=== PATIENT | male | born 1960 | race Caucasian/White ===

== ENCOUNTER 2022-12-04 11:02 | Outpatient (CLI) | payer OTHER, SELFPAY ==
[2022-12-04 15:47] LABS: Strep A DNA Probe* NOT DETECTED (Not Detectd)
== END 2022-12-04 11:03 | disposition home or self-care (01) ==
PROVIDERS: PCP Nurse Practitioner Family; Visit Provider Nurse Practitioner Family
DX: J02.9 Acute pharyngitis, unspecified (principal)
CPT/HCPCS: 87651

== ENCOUNTER 2023-03-01 13:40 | Outpatient (CLI) | payer OTHER, SELFPAY ==
--- NOTE | 2023-03-01 14:00 | CRLHL7_ITS ---
For Patients: As a result of the Century Cures Act, medical imaging exams and procedure reports are released immediately into your electronic medical record. You may view this report before your referring provider. If you have questions, please contact your health care provider. INDICATION: Lower abdominal pain and pressure TECHNIQUE: Axial images were obtained from the diaphragm to the pubic symphysis. Reformats were obtained in the coronal and sagittal plane. IV Contrast: 100 cc Isovue 370 Oral Contrast: None COMPARISON: None. FINDINGS: Lower chest: Basilar discoid atelectasis. Liver: Normal in contour with a subcentimeter hypodense lesion within the left lobe of the liver. In the absence of a known primary malignancy this would likely represent an incidental finding. Gallbladder and bile ducts: Unremarkable. No stones or inflammation. No biliary dilatation. Spleen: Enhancing splenic lesion measuring up to 11 millimeters. Pancreas: Unremarkable. No mass or inflammation. Adrenal glands: Unremarkable. No nodules. Kidneys: Symmetric renal enhancement without hydronephrosis. Indeterminate right renal hypodense lesion measuring 10 millimeters. Vasculature: Unremarkable. GI tract: The stomach is unremarkable. No dilated loops of large or small intestine with colonic diverticulosis noted. At the level of the sigmoid colon there is prominent fat stranding within the previous sigmoid mesentery as well as trace free fluid. Thickening of the sigmoid colon which appears more focal around a mid sigmoid diverticulum (series 2, image 116). Pelvis: Small fat containing bilateral direct inguinal hernias. Bones: Unremarkable for age. IMPRESSION: 1. Acute diverticulitis involving the sigmoid colon with small free fluid without evidence of abscess. 2. Indeterminate hyperdense splenic lesion measuring 11 millimeters, presumed enhancing. As clinically desired, follow-up outpatient splenic MRI would have improved characterization. 3. Small fat containing bilateral direct inguinal hernias. Please note that all CT scans at this facility use dose modulation, iterative reconstruction, and/or weight-based dosing when appropriate to reduce radiation dose to as low as reasonably achievable. Dictated by Geoff Terrazas MD @ 03/01/2023 3:36:13 PM (Electronically Signed)
== END 2023-03-01 13:41 | disposition home or self-care (01) ==
LOC: CT 13:41
PROVIDERS: PCP Nurse Practitioner Family; Visit Provider Nurse Practitioner Family
DX: R10.30 Lower abdominal pain, unspecified (principal); K57.92 Diverticulitis of intestine, part unspecified, without perforation or abscess without bleeding; D73.89 Other diseases of spleen; K40.90 Unilateral inguinal hernia, without obstruction or gangrene, not specified as recurrent
CPT/HCPCS: 74177; 80048; 81015; 85025; 87086; Q9967

== ENCOUNTER 2023-03-30 08:03 | Outpatient (CLI) | payer OTHER, SELFPAY ==
--- NOTE | 2023-03-30 08:20 | CRLHL7_ITS ---
For Patients: As a result of the Cures Act, medical imaging exams and procedure reports are released immediately into your electronic medical record. You may view this report before your referring provider. If you have questions, please contact your health care provider. INDICATION: Splenic lesion; further assessment. COMPARISON: CT abdomen and pelvis with intravenous contrast March 30, 2021 and March 01, 2023. TECHNIQUE: Precontrast T1 and T2 weighted imaging ; To haste imaging; diffusion weighted imaging; in and out of phase imaging; postcontrast imaging; 12 cc of a Dotarem contrast was injected. Findings: A 1.2 x 1 cm lesion identified in the spleen with high signal on the precontrast T2 haste imaging and low signal on the precontrast T1 weighted imaging with enhancement postcontrast administration indicating a hemangioma ; Stable when compared to March 30, 2021. No focal hepatic pathology. No pancreatic pathology. Tiny cyst segment 3 of the liver. Gallbladder is unremarkable. No adrenal pathology. Tiny cortical cyst upper pole left kidney. No retroperitoneal lymphadenopathy. No evidence of abdominal ascites. IMPRESSION: 1. 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 2. Tiny cyst segment 3 of the liver and left kidney. Dictated by Kathleen Glodstein MD @ 04/05/2023 4:06:35 PM (Electronically Signed)
== END 2023-03-30 08:04 | disposition home or self-care (01) ==
LOC: MRI 08:04
PROVIDERS: PCP Nurse Practitioner Family; Visit Provider Nurse Practitioner Family
DX: D73.89 Other diseases of spleen (principal); K76.89 Other specified diseases of liver; N28.1 Cyst of kidney, acquired
CPT/HCPCS: 74183; A9575

== ENCOUNTER 2023-11-29 15:34 | Outpatient (CLI) | payer OTHER, SELFPAY | END 2023-11-29 15:35 | disposition home or self-care (01) | LOC: KYNREF 15:35 | PROVIDERS: PCP Nurse Practitioner Family; Visit Provider Nurse Practitioner Family | DX: N40.0 Benign prostatic hyperplasia without lower urinary tract symptoms (principal); Z12.5 Encounter for screening for malignant neoplasm of prostate | CPT/HCPCS: G0103 ==

== ENCOUNTER 2024-07-29 06:21 | Outpatient (CLI) | payer MEDICARE, BC, SELFPAY ==
--- OUTSIDE RECORDS SUMMARY | 2024-07-29 06:23 | XMS_ITS | Clinical Summary ---
Author Organization [facility] Address [place], [place] [address] Care Team Providers Care Salesperson Hearing Aids Name Role Phone Unknown, Doctor Primary Care Provider Unavailabl e Allergies Active Allergy Reactions Criticality Noted Date Comments Penicillins Rash 03/20/2006 Medications Medication Sig Dispensed Refills Start Date End Date Status lisinopril (PRINIVIL; ZESTRIL) 30 mg tablet TAKE ONE TABLET BY MOUTH EVERY DAY 09/14/2017 Active medication order composer Vit B once daily 0 06/16/2019 Active medication order composer Curcumin once daily 0 06/16/2019 Activ e medication order composer Lutein Zeazanthin eye health once daily 0 06/16/2019 Active Active Problems Problem Noted Date Diagnosed Date Colon polyp 12/15/2021 Overview (12/15/2021): Colonoscopy 11/2021 TA, repeat in 7 years with propofol Presbyopia 03/23/2006 Regular astigmatism 03/23/2006 Hypermetropia 03/23/2006 Backache, unspecified 03/20/2006 Overview (03/20/2006): on naproxen Fitting and adjustment of orthopedic device 02/25 SEASONAL AFFECTIVE DISORDER 10/19/2003 ABNORMAL FINDINGS, ELEVATED BP W/O HTN 200 4 EXAMINATION, ROUTINE MEDICAL 02/21/2000 Immunizations Name Administration Dates Next Due Tdap 03/20/2006 Family History Medical History Relation Name Comments Allergies Brother seasonal Anesthesia Problem Daughter Heart Disease Maternal Grandfather stroke Hypertension Maternal Grandfather Hypertension Mother Other Mother cornea surg. ,m acular degeneration Genetic Other No hx of HTN, D M, CAD, colon cancer, or prostate cancer. Cancer Paternal Grandfather lung ca ? in his 90's Other Paternal Uncle dementia Psychiatric illness Son add mild Relation Name Status Comments Brother Daughter Maternal Grandfather Mother Other Paternal Grandfather Paternal Uncle Son Social History Tobacco Use Types Packs/Day Years Used Date Smoking Tobacco: Never Smokeless Tobacco: Never Tobacco Cessation:Counseling Given: Yes Alcohol Use Standard Drinks/Week Comments Yes 0 (1 standard drink = 0.6 oz pur e alcohol) 3 TIMES WEEKLY Sex and Gender Information Value Date Recorded Sex Assigned at Not on file Gender Identity Not on file Sexual Orientation Not on file Obstetrics History Last Filed Vital Signs Vital Sign Reading Time Taken Comments Blood Pressure 138/70 06/16/2019 10:22 AM CDT Pulse 48 06/16/2019 10:22 AM CDT Temperature 36.5 C (97.7 F) 10/19/2003 12:00 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 Respiratory Rate 16 06/16/2019 10:22 AM CDT Oxygen Saturation - - Inhaled Oxygen Concentration - - Weight 101.2 kg (223 lb) 06/16/2019 10:22 AM CDT Height 188 cm (6' 2) 03/22/2004 12:00 AM CDT Body Mass Index - - Plan of Treatment Health Maintenance Due Date Last Done Comments Depression screening for age 12+ 1970 BMI (ht and wt on same day) for age 18+ 1976 Hepatitis C screening for ag e 18-79 1976 Zoster (shingles) series for age 50+ (1 of 2) 2008 Lipids for age 45-75 03/23/2011 03/23/2006, 10/19/2003, 10/19/2003, Additional history exists Tetanus booster 03/20/2016 03/20/2006 Pneumococcal series for age 65+ (1 of 1 - PCV) 2023 COVID-19 vaccine series ( season) 2024 07/22/2021, 12/10/2020, 11/12/2020 Influenza for age 65+ 04/27/2024 Colonoscopy through age 75 12/13/2028 12/13/2021 Tdap Completed 03/20/2006 Procedures Procedure Name Priority Date/Time Associated Diagnosis Comments SCAN-COLONOSCOPY 12/13/2021 12:0 0 AM CDT LIPID PANEL Routine 03/23/2006 8:30 AM CDT Screening Lipid Disorders from Last 3 Months or Most Recently Relevant to Health Maintenance Results * SCAN-COLONOSCOPY (12/13/2021 12:00 AM CDT) Scanner OTHER * LIPID PANEL (03/23/2006 8:30 AM CDT) CHOLESTEROL,TOTAL 141 110 - 199 mg/dL [facility] TRIGLYCERIDES 49 40 - 149 mg/dL [facility] HDL CHOLESTEROL 57 >40 mg/dL [facility] CHOL/HDL RATIO 2.47 <4.51 [facility] LDL CHOLESTEROL 74 <131 mg/dL [facility] PATIENT STATUS Fasting [facility] Blood specimen (specimen) BLOOD SPECIMEN / Unknown 03/23/2006 8:30 AM CDT 03/23/2006 8:29 AM CDT Ani Garza MD CHEMISTRY [facility] [place] ZIP [id number] [address] from Last 3 Months or Most Recently Relevant to Health Maintenance Care Teams Salesperson Hearing Aids Relationship Specialty Start Date End Date Unknown, Doctor . PCP - General Unknown Physician Specialty 08/28/12
--- NOTE | 2024-07-29 08:11 | W.ANESCHARGE ---
Anesthesia Charges Start Date/Time Anesthesia Start Date: 07/29/24 Anesthesia Start Time: 07:10 Stop Date/Time Anesthesia Stop Date: 07/29/24 Anesthesia Stop Time: 08:06
--- NOTE | 2024-07-29 09:09 | W.ANESCHARGE ---
Anesthesia Charges Start Date/Time Anesthesia Start Date: 07/29/24 Anesthesia Start Time: 07:10 Stop Date/Time Anesthesia Stop Date: 07/29/24 Anesthesia Stop Time: 08:06
== END 2024-07-29 06:22 | disposition home or self-care (01) ==
PROVIDERS: PCP Nurse Practitioner Family; Visit Provider Surgery
DX: D12.0 Benign neoplasm of cecum (principal); D12.2 Benign neoplasm of ascending colon; D12.3 Benign neoplasm of transverse colon; D12.5 Benign neoplasm of sigmoid colon; D12.8 Benign neoplasm of rectum; K57.30 Diverticulosis of large intestine without perforation or abscess without bleeding; Z86.0100 Personal history of colon polyps, unspecified
CPT/HCPCS: 00811; 45385; 88305; J2704

== ENCOUNTER 2024-12-19 04:27 | Outpatient (CLI) | payer MEDICARE, BC, SELFPAY | END 2024-12-19 04:28 | disposition home or self-care (01) | PROVIDERS: PCP Nurse Practitioner Family; Visit Provider Nurse Practitioner Family | DX: I12.9 Hypertensive chronic kidney disease with stage 1 through stage 4 chronic kidney disease, or unspecified chronic kidney disease (principal); N18.30 Chronic kidney disease, stage 3 unspecified; E78.5 Hyperlipidemia, unspecified; N40.1 Benign prostatic hyperplasia with lower urinary tract symptoms; R35.1 Nocturia; Z12.5 Encounter for screening for malignant neoplasm of prostate | CPT/HCPCS: 80053; 80061; 85025; G0103 ==